=== PATIENT | female | born 1970 ===

== ENCOUNTER → 2022-04-13 09:14 | Outpatient (CLI) | payer OTHER, MEDICAID, SELFPAY ==
[2022-04-13 10:13] LABS: Hematocrit 39.8 % (36-46); Hemoglobin 12.8 g/dL (12.0-16.0); Mean Corpuscular HGB Conc 32.1 % (30-36); Mean Corpuscular Hemoglobin 25.7 PG (26-34); Mean Corpuscular Volume 80.1 fL (80-100); Platelet Count 242 X10^3/uL (150-400); Red Blood Cell Count 4.96 X10^6/uL (4.0-5.2); Red Cell Distribution Width 13.4 % (11.6-14.8); White Blood Cell Count 4.4 X10^3/uL (4.5-11.0)
[2022-04-13 10:24] LABS: HEMOLYSIS < 15 (0-50); Iron 103 ug/dL (37-170)
[2022-04-13 10:26] LABS: Alanine Aminotransferase 20 IU/L (<35); Albumin 4.4 g/dL (3.5-5.0); Albumin Globulin Ratio 1.4 (1.0-2.8); Alkaline Phosphatase 67 U/L (38-126); Aspartate Aminotransferase 34 IU/L (14-36); Bilirubin Total 0.3 mg/dL (0.2-1.3); Blood Urea Nitrogen 25 mg/dL (7-17); Carbon Dioxide 30 mmol/L (22-32); Chloride 102 mmol/L (98-107); Cholesterol 201 mg/dL (140-199); Estimated Glomerular Filt Rate 46 mL/min (>60); Globulin 3.1 g/dL (1.7-4.1); Glucose 93 mg/dL (70-100); HDL Cholesterol 91 mg/dL (40-60); HEMOLYSIS < 15 (0-50); LDL Cholesterol Calculated 103 mg/dL (<100); Potassium 4.6 mmol/L (3.4-5.1); Sodium 138 mmol/L (137-145); Total Protein 7.5 g/dL (6.3-8.2); Triglycerides 36 mg/dL (35-150)
[2022-04-13 10:34] LABS: Percent Iron Saturation 28 % (15-50); Total Iron Binding Capacity 374 ug/dL (265-497); Transferrin 316 mg/dL (206-381)
[2022-04-13 10:54] LABS: TSH w/ Reflex to FT4 1.84 uIU/mL (0.47-4.68)
[2022-04-13 10:58] LABS: Ferritin 71 ng/mL (11-264)
[2022-04-15 09:08] LABS: Calcium 9.2 mg/dL (8.7-10.2); Parathyroid Hormone, Intact 46 pg/mL (15-65)
== END ==
PROVIDERS: PCP Registered Nurse Diabetes Educator; Referring Provider Registered Nurse Diabetes Educator; Visit Provider Registered Nurse Diabetes Educator
DX: Z00.00 Encounter for general adult medical examination without abnormal findings (principal); L65.9 Nonscarring hair loss, unspecified
CPT/HCPCS: 36415; 80053; 80061; 82310; 82728; 83540; 83550; 83970; 84443; 85027

== ENCOUNTER → 2022-04-29 09:14 | Outpatient (CLI) | payer OTHER, MEDICAID, SELFPAY ==
[2022-04-29 10:22] LABS: Appearance Urine UA CLEAR; Bilirubin Urine UA NEGATIVE (NEGATIVE); Color Urine UA YELLOW; Glucose Urine UA NEGATIVE (Negative); Ketones Urine UA NEGATIVE (NEGATIVE); Leukocyte Esterase Urine UA NEGATIVE (NEGATIVE); Nitrite Urine UA NEGATIVE (Negative); Occult Blood Urine UA NEGATIVE (Negative); Protein Urine UA NEGATIVE (Negative); Specific Gravity Urine UA <=1.005 (1.000-1.035); Urobilinogen Urine UA 0.2 E.U./dL (0.2)
[2022-04-29 10:28] LABS: Bacteria Urine None Seen; Culture Indicated Urine Cult Not Indicated; RBC Urine None Seen (0-5/HPF); Urine Comments Microscopic Normal; WBC Urine None Seen (0-5/HPF)
[2022-04-29 10:53] LABS: Creatinine Urine Random 17.1 mg/dL
[2022-04-29 10:57] LABS: Microalbumin Urine Random < 0.6 mg/dL (0-1.6)
[2022-04-29 13:26] LABS: Blood Urea Nitrogen 18 mg/dL (7-17); Calcium 9.3 mg/dL (8.4-10.2); Carbon Dioxide 32 mmol/L (22-32); Chloride 99 mmol/L (98-107); Estimated Glomerular Filt Rate > 60 mL/min (>60); Glucose 87 mg/dL (70-100); HEMOLYSIS < 15 (0-50); Potassium 4.5 mmol/L (3.4-5.1); Sodium 138 mmol/L (137-145)
== END ==
PROVIDERS: PCP Registered Nurse Diabetes Educator; Referring Provider Registered Nurse Diabetes Educator; Visit Provider Registered Nurse Diabetes Educator
DX: R94.4 Abnormal results of kidney function studies (principal)
CPT/HCPCS: 36415; 80048; 81001; 82043; 82570

== ENCOUNTER → 2022-07-10 12:19 | Outpatient (CLI) | payer OTHER, MEDICAID, SELFPAY ==
--- NOTE | 2022-07-10 12:21 | DI.US.S_ITS ---
PROCEDURE: US PELVIC COMPLETE INDICATIONS: reeval fibroids/pelvic pain TECHNIQUE: Real-time scanning was performed of the pelvic organs, with image documentation. Additional endovaginal scanning was necessary due to incomplete visualization of the adnexal and endometrial structures by transabdominal scanning. COMPARISON: [facility], US, US PELVIC COMPLETE WITH TRANSVAGINAL, 11/10/2017, 7:14. [facility], US, US ABDOMEN LIMITED, 07/10/2022, 12:31. FINDINGS: Uterus: Uterus is anteverted and normal in size at 8.5 x 4.2 x 4.9 cm. The myometrium is heterogeneous. The endometrium measures 5 mm combined thickness. Hypoechoic uterine lesions are seen, which are attributed to fibroids. They measure as follows: Right anterior uterus, subserosal, partially calcified, 7.4 x 6.3 x 9.2 cm (prior 8.3 x 8.7 x 7.5 cm) Left posterior uterus, subserosal, partially calcified, 2.4 x 2 x 2.1 cm (prior 2.2 x 2.4 x 1.8 cm) Right anterior uterus, intramural, 1.2 x 0.9 x 1.1 cm. Ovaries: The ovaries are not seen. No adnexal masses are seen on either side. Other: No pathologic free abdominal or pelvic fluid. IMPRESSION: Numerous uterine fibroids are seen, with slight interval increase in size compared to 2018. Limited study, without visualization of either ovary. We strive to produce accurate, complete, and clear reports of imaging services. To assist us in improving patient care, this report was composed using standard report templates and voice recognition software. Therefore, it may contain abnormal punctuation, insertions and/or omissions. Occasional wrong-word or sound-alike substitutions may occur. Though we review the report and make efforts to correct it, we do recommend that the report be read carefully in proper context to recognize any text inaccuracies. Dictated by: Bismark Lopez M.D. on 07/10/2022 at 12:47 Approved by: Bismark Lopez M.D. on 07/10/2022 at 12:49
--- NOTE | 2022-07-10 12:21 | DI.US.S_ITS ---
PROCEDURE: US ABDOMEN LIMITED INDICATIONS: RUQ pain TECHNIQUE: Real-time focused scanning was performed of the abdomen, with image documentation. COMPARISON: [facility], US, US PELVIC COMPLETE, 07/10/2022, 12:41. FINDINGS: The liver is normal in size and demonstrates no focal lesions. Note is made of a simple appearing, nonvascular 15 mm right hepatic cyst. No findings of gallstones or sludge are seen. The gallbladder wall is not thickened, measuring 3 mm or less. No specific pericholecystic fluid is seen. The sonographic Padilla sign is negative. There is no biliary dilatation, the common bile duct measures 4 mm. No significant pancreatic abnormality is seen on these images. IMPRESSION: The gallbladder demonstrates a normal sonographic appearance. No biliary dilatation is seen. 15 mm right liver cyst incidentally noted. Dictated by: Bismark Lopez M.D. on 07/10/2022 at 12:45 Approved by: Bismark Lopez M.D. on 07/10/2022 at 12:46
== END ==
PROVIDERS: PCP Registered Nurse Diabetes Educator; Referring Provider Registered Nurse Diabetes Educator; Visit Provider Registered Nurse Diabetes Educator
DX: D25.1 Intramural leiomyoma of uterus (principal); D25.2 Subserosal leiomyoma of uterus; R10.11 Right upper quadrant pain; R10.2 Pelvic and perineal pain; K76.89 Other specified diseases of liver
CPT/HCPCS: 76705; 76830; 76856

== ENCOUNTER 2022-11-05 08:20 | Emergency (ER) | payer OTHER, MEDICAID, SELFPAY ==
[2022-11-05] VITALS (8 sets, daily range): BP systolic 148–185; BP diastolic 89–110; PULSE 55–80; RESP 16–20; TEMP 36.3; O2SAT 99–100; BMI 30.2
--- NOTE | 2022-11-05 08:43 | DI.US.S_ITS ---
PROCEDURE: US ABDOMEN LIMITED INDICATIONS: RUQ PAIN TECHNIQUE: Real-time scanning was performed of the abdominal and retroperitoneal organs, with image documentation. COMPARISON: [facility], , US ABDOMEN LIMITED, 07/10/2022, 12:31. FINDINGS: Liver: Liver is normal in size and homogeneous in echotexture. Gallbladder: Minimal sludge is seen. No stones. No wall thickening or pericholecystic fluid. Biliary ducts: Intrahepatic bile ducts are non-dilated. Extrahepatic bile duct caliber measures 2.4 mm. Normal is 6-7 mm or less in diameter, or 10 mm or less post-cholecystectomy. Pancreas: Visualized portions of the pancreas are sonographically normal. IMPRESSION: No acute ultrasound abnormality in the right upper quadrant. Dictated by: Wilver Draper M.D. on 11/05/2022 at 10:04 Approved by: Wilver Draper M.D. on 11/05/2022 at 10:05
[2022-11-05 09:19] LABS: Add Manual Diff / Slide Review NO; Basophils Absolute Auto 0 /uL (0-100); Basophils Percent Auto 0.7 % (0-2); Eosinophils Absolute Auto 300 /uL (0-450); Eosinophils Percent Auto 5.6 % (2-4); Hematocrit 39.4 % (36-46); Hemoglobin 12.8 g/dL (12.0-16.0); Lymphocytes Absolute Auto 1200 /uL (1100-4500); Lymphocytes Percent Auto 24.3 % (25-40); Mean Corpuscular HGB Conc 32.5 % (30-36); Mean Corpuscular Hemoglobin 25.9 PG (26-34); Mean Corpuscular Volume 79.6 fL (80-100); Monocytes Absolute Auto 300 /uL (0-900); Monocytes Percent Auto 6.8 % (3-14); Neutrophils Absolute Auto 3200 /uL (1500-7000); Neutrophils Percent Auto 62.6 % (50-75); Platelet Count 248 X10^3/uL (150-400); Red Blood Cell Count 4.95 X10^6/uL (4.0-5.2); Red Cell Distribution Width 13.9 % (11.6-14.8); White Blood Cell Count 5.1 X10^3/uL (4.5-11.0)
[2022-11-05 09:31] LABS: Alanine Aminotransferase 13 IU/L (<35); Albumin 4.4 g/dL (3.5-5.0); Albumin Globulin Ratio 1.3 (1.0-2.8); Alkaline Phosphatase 73 U/L (38-126); Aspartate Aminotransferase 31 IU/L (14-36); BUN Creatinine Ratio 17.1 (6-22); Bilirubin Total 0.4 mg/dL (0.2-1.3); Blood Urea Nitrogen 14 mg/dL (7-17); Calcium 8.8 mg/dL (8.4-10.2); Carbon Dioxide 31 mmol/L (22-32); Chloride 104 mmol/L (98-107); Estimated Glomerular Filt Rate > 60 mL/min (>60); Globulin 3.3 g/dL (1.7-4.1); Glucose 94 mg/dL (70-100); HEMOLYSIS 32 (0-50); Lipase 75 U/L (23-300); Sodium 139 mmol/L (137-145); Total Protein 7.7 g/dL (6.3-8.2)
[2022-11-05] MEDS: SODIUM CHLORIDE 0.9% 1,000 ML 1000 ML IV (09:33)
--- NOTE | 2022-11-05 10:10 | DI.CT.S_ITS ---
PROCEDURE: CT ABDOMEN PELVIS W CON INDICATIONS: severe R side pain TECHNIQUE: After the administration of intravenous contrast, axial sections acquired from the lung bases to the pubic symphysis. Coronal and sagittal reformats were performed. For radiation dose reduction, the following was used: automated exposure control, adjustment of mA and/or kV according to patient size. COMPARISON: None. FINDINGS: Image quality: Excellent. Lung bases: Unremarkable. Heart: No significant findings. ABDOMEN: Liver: Scattered subcentimeter hypoattenuating lesions, too small to characterize by CT but probably small cysts. Gallbladder: Unremarkable. Biliary ducts: Unremarkable. Pancreas: Unremarkable. Spleen: Unremarkable. Adrenal Glands: Unremarkable. Kidneys and Ureters: Unremarkable. Stomach and Bowel: Stomach, small bowel loops, and colon are unremarkable. Normal appendix. Peritoneum: No abnormal intraperitoneal fluid. No free air. Ventral Wall: No hernias. Abdominal Nodes: No retroperitoneal or mesenteric adenopathy by size criteria. Vessels: Aorta and inferior vena cava are normal in size. PELVIS: Pelvic Organs: Calcified and noncalcified fibroids. Bladder: Unremarkable. Pelvic Nodes: No enlarged lymph nodes. Miscellaneous: No hernias are seen. Hypoattenuating lesion in the left gluteal musculature measuring 3.2 x 1.9 cm (series 2, image 68). Bones: Unremarkable. IMPRESSION: No acute findings to explain the patient's severe right-sided pain. No nephrolithiasis. Normal appendix and gallbladder. Calcified and noncalcified fibroids. Hypoattenuating lesion in the left gluteal musculature measuring 3.2 x 1.9 cm. Differential includes muscle injury or less likely soft tissue sarcoma. Correlate with history of trauma; if negative, consider outpatient MRI with contrast to exclude sarcoma. Dictated by: Vidal Carrion M.D. on 11/05/2022 at 10:39 Approved by: Vidal Carrion M.D. on 11/05/2022 at 10:42
--- NOTE | 2022-11-05 11:04 | ED_ITS ---
HPI - Abdominal Pain General Chief Complaint: Abdominal Pain Stated Complaint: abd pain since October 20 Time Seen by Provider: 11/05/22 08:38 Source: patient Mode of arrival: Family Vehicle History of Present Illness HPI narrative: 52-year-old female nonsmoker with history of hypertension, asthma and ADHD presents with a chief complaint of off and on right-sided abdominal pain for least the past few months. She had seen in her primary care provider a few months ago and had an ultrasound which was unremarkable. She states that her pain had actually improved for awhile and then started coming back perhaps 2-3 weeks ago. She states that it is universally in the right upper quadrant and has episodes where it radiates down. She states on occasion she has some right upper back pain as well. She is nauseated but denies any vomiting. She is had no fever or chills. She denies any diarrhea or constipation and has no urinary complaints such as dysuria, frequency or urgency. She denies any trauma or injury. She has no chest pain or shortness of breath. Related Data Home Medications Medication Instructions Recorded Confirmed bupropion HCl 150 mg tablet,12 hr 150 mg PO DAILY ADHD 05/04/22 09/16/22 sustained-release methylphenidate HCl 36 mg 36 mg PO DAILY ADHD 05/04/22 09/16/22 tablet,extended release 24 hr dexmethylphenidate 10 mg tablet 10 mg PO 09/16/22 09/16/22 Previous Rx's Medication Instructions Recorded amlodipine 2.5 mg tablet 2.5 mg PO DAILY #30 tabs 09/21/22 benazepril 10 mg tablet 10 mg PO DAILY #30 tabs 09/21/22 peg 3350-electrolytes 236 240 ml PO Q10M #4,000 mL 11/04/22 gram-22.74 gram-6.74 gram-5.86 gram solution (Golytely) Allergies Allergy/AdvReac Type Severity Reaction Status Date / Time COVID-19 (SARS-CoV-2) Allergy Intermediate Hives Verified 11/05/22 08:53 vaccine, lon Review of Systems Review of Systems Narrative: GENERAL: Denies chills, fatigue, malaise, fever, sweats. HEENT: Denies sinus pain, ear pain, sore throat, difficulty swallowing, dizziness. RESPIRATORY: Denies dyspnea, cough, wheezing, hemoptysis, sputum. CARDIOVASCULAR: Denies chest pain, palpitations, orthopnea, edema, GASTROINTESTINAL: See HPI : Denies dysuria, frequency, incontinence, hematuria, urinary retention. MUSCULOSKELETAL: denies weakness, joint pain, or bony pain SKIN: Denies rash, skin lesions, or other NEUROLOGIC: Denies weakness, headache, numbness, change in speech, confusion, seizures, incoordination. PSYCHIATRIC: No concerning psychosocial issues. 12 point review of systems is negative except for those stated above Patient History Medical History ADHD (~2008) Asthma (~2003) Epidermal cyst (~2014) Essential hypertension (~2019) Fibroids (~2008) Irregular menstrual cycle (~2017) Myopia Petechiae (~2020) Surgical History Anesthesia History of section Family History Father Hyperparathyroidism Diabetes mellitus History of heart disease Hypertension Stroke Kidney failure Mother Dementia Cataracts, bilateral Breast cancer Hypertension Hyperlipidemia Grandfather Hypertension Grandmother History of heart disease Congestive heart failure Social History Smoking Status: Never smoker Smoking Status: Never smoker alcohol intake frequency: 0-2 drinks per day Substance Use Type: does not use Exam Narrative Exam Narrative: GENERAL: [52] year old patient appears stated age. Well-developed patient, in mild distress. HEAD: Atraumatic. Normocephalic. EYES: Pupils equal round and reactive. Extraocular motions intact. No scleral icterus. No injection or drainage. ENT: Nose without bleeding, purulent drainage. Throat without erythema, tonsillar hypertrophy or exudate. Airway patent. NECK: Trachea midline. Non tender CARDIOVASCULAR: Regular rate and rhythm without murmurs, gallops, or rubs. RESPIRATORY: Clear to auscultation. Breath sounds equal bilaterally. No wheezes, rales, or rhonchi. GASTROINTESTINAL: Abdomen soft, mild right-sided abdominal pain, nondistended. EXTREMITIES: No edema or joint tenderness. BACK: Nontender without deformity or crepitance. No flank tenderness. NEURO: AOx3. SKIN: No rash or erythema of visible areas Initial Vital Signs Initial Vital Signs: Vital Signs Temperature 97.4 F L 11/05/22 08:41 Pulse Rate 80 11/05/22 08:41 Respiratory Rate 18 11/05/22 08:41 Blood Pressure 185/110 H 11/05/22 08:41 Pulse Oximetry 99 11/05/22 08:41 Oxygen Delivery Method Room Air 11/05/22 08:41 Course Orders Ordered: Discontinued Medications Sodium Chloride (Normal Saline 0.9%) 1,000 mls @ 1,000 mls/hr IV BOLUS ONE Stop: 11/05/22 09:42 Last Infusion: 11/05/22 10:24 Dose: 0 mls/hr Documented By: Admin: 11/05/22 09:33 Dose: 1,000 mls/hr Documented By: STACIE Vital Signs Vital signs: Vital Signs - 8 hr 11/05/22 08:41 11/05/22 09:27 11/05/22 09:28 Temperature 97.4 F L Pulse Rate 80 64 Respiratory Rate 18 18 Blood Pressure 185/110 H 166/89 H Pulse Oximetry 99 100 Oxygen Delivery Method Room Air 11/05/22 09:28 11/05/22 09:30 11/05/22 09:30 Temperature Pulse Rate 60 63 Respiratory Rate 20 Blood Pressure 167/95 H Pulse Oximetry 100 100 Oxygen Delivery Method 11/05/22 10:00 11/05/22 10:01 11/05/22 10:01 Temperature Pulse Rate 62 60 Respiratory Rate Blood Pressure 148/94 H Pulse Oximetry 100 100 Oxygen Delivery Method MDM - Abdominal Pain Lab Data 11/05/22 09:13 11/05/22 09:13 Labs: Lab Results 11/05/22 11/05/22 Range/Units 09:13 09:13 WBC 5.1 (4.5-11.0) X10^3/uL RBC 4.95 (4.0-5.2) X10^6/uL Hgb 12.8 (12.0-16.0) g/dL Hct 39.4 (36-46) % MCV 79.6 L (80-100) fL MCH 25.9 L (26-34) PG MCHC 32.5 (30-36) % RDW 13.9 (11.6-14.8) % Plt Count 248 (150-400) X10^3/uL Neut % (Auto) 62.6 (50-75) % Lymph % (Auto) 24.3 L (25-40) % Sharkey % (Auto) 6.8 (3-14) % Eos % (Auto) 5.6 H (2-4) % Baso % (Auto) 0.7 (0-2) % Neut # (Auto) 3200 (8082-5535) /uL Lymph # (Auto) 1200 (5450-6508) /uL Sharkey # (Auto) 300 (0-900) /uL Eos # (Auto) 300 (0-450) /uL Baso # (Auto) 0 (0-100) /uL Sodium 139 (137-145) mmol/L Potassium 4.0 (3.4-5.1) mmol/L Chloride 104 (98-107) mmol/L Carbon Dioxide 31 (22-32) mmol/L BUN 14 (7-17) mg/dL Creatinine 0.82 (0.52-1.04) mg/dL Estimated GFR > 60 (>60) mL/min BUN/Creatinine Ratio 17.1 (6-22) Glucose 94 (70-100) mg/dL Calcium 8.8 (8.4-10.2) mg/dL Total Bilirubin 0.4 (0.2-1.3) mg/dL AST 31 (14-36) IU/L ALT 13 (<35) IU/L Alkaline Phosphatase 73 (38-126) U/L Total Protein 7.7 (6.3-8.2) g/dL Albumin 4.4 (3.5-5.0) g/dL Globulin 3.3 (1.7-4.1) g/dL Albumin/Globulin Ratio 1.3 (1.0-2.8) Lipase 75 (23-300) U/L Point of care testing: Urine Dip Bedside Urine Glucose Negative Bedside Urine Bilirubin - Negative Bedside Urine Ketone - Negative Urine Specific [place] 1.010 Bedside Urine Occult Blood - Negative Bedside Urine pH 7.0 Bedside Urine Protein - Negative Bedside Urine Urobilinogen - Negative Bedside Urine Nitrite - Negative Bedside Urine Leukocytes - Negative Esterase MDM Narrative Medical decision making narrative: [52] year old patient presents with right-sided abdominal pain off and on for many months Multiple etiologies for patient's symptoms considered including, but not limited to: [Gallbladder disease versus liver disease versus pancreatitis versus kidney stone versus pyelonephritis versus bowel obstruction versus other] Prior Charts reviewed in our EMR Primary Historian: patient Labs reviewed and interpreted by myself: No leukocytosis or left shift, no signs of anemia, electrolytes, kidney function, bilirubin, LFTs, lipase all within normal limits. Imaging reviewed: Ultrasound without abnormal findings, CT of abdomen and pelvis with IV contrast also without acute findings Patient's symptoms improved over duration of stay with above-stated therapies. Pain is well controlled, she is tolerating orals, no signs of sepsis, labs and imaging without any acute findings, history and physical exam are reassuring and multiple diagnoses have been considered but no evidence need for hospitalization or surgical intervention at this time. Patient given return precautions including fever, persistent vomiting, worsening pain or other concerning symptoms. Encouraged to follow closely with her care team and discussion regarding the potential benefit of surgical referral for possible endoscopy, HIDA scan versus other Findings and discharge diagnosis discussed with patient/family followed by verbalization of understanding Return precautions discussed with patient/family whom verbalize understanding of diagnosis and plan Discharge Plan Departure Patient Disposition: Home Clinical Impression: Abdominal pain Instructions: DI for Abdominal Pain-Adult Activity Restrictions/Additional Instructions: *You have been diagnosed with [abdominal pain] * As we discussed your history and physical exam as well as labs and imaging are very reassuring. There is no evidence of any severe diagnoses that would require a specific or immediate intervention. *What to do: *Please continue to take your regular medications as directed. *Please follow up with your primary care provider in 2-3 days, call for an appointment. Let them know you were seen in the Emergency Department and that we ask that you be seen in follow up. We will electronically transmit a record of today's note if your PCP is in our system *Please consider a clear liquid diet for the next 24-48 hours and then slowly advance to regular as tolerated. Also, try to avoid alcohol, nicotine, caffeine, spicy, acidic or fatty foods as this may worsen your symptoms *If you do not have a primary care provider please contact the [facility] Resource line at [phone]. They will ask some questions about your medical h istory and help get you set up with a doctor in the community. *Return to Emergency Department if you should have any new, worsening or concerning symptoms, such as [fever greater than 101 F, shaking chills, worsening pain, persistent vomiting or other bothersome symptoms] Prescriptions: No Action peg 3350-electrolytes [Golytely] 236-22.74-6.74 -5.86 gram recon soln 240 ml PO Q10M Qty: 4000 0RF Rx Instructions: take as directed by Physician methylphenidate HCl 36 mg tablet extended release 24hr 36 mg PO DAILY Patient Comments: since 2008 bupropion HCl 150 mg tablet sustained-release 12 hr 150 mg PO DAILY Patient Comments: since 2012 dexmethylphenidate 10 mg tablet 10 mg PO Patient Comments: take 1 tablet by mouth once daily if needed amlodipine 2.5 mg tablet 2.5 mg PO DAILY Qty: 30 2RF benazepril 10 mg tablet 10 mg PO DAILY Qty: 30 2RF Referrals: Chalino Bowers ARNP [Primary Care Provider] - Stand Alone Forms: Patient Portal/API
== END 2022-11-05 13:15 | disposition home or self-care (01) ==
PROVIDERS: Emergency Provider Emergency Medicine; PCP Registered Nurse Diabetes Educator
DX: R10.9 Unspecified abdominal pain (principal); R11.0 Nausea
CPT/HCPCS: 74177; 76705; 80053; 81003; 83690; 85025; 99284; Q9967

== ENCOUNTER 2023-02-11 08:07 | Day surgery (SDC) | payer OTHER, MEDICAID, SELFPAY ==
--- NOTE | 2023-02-11 | PATH_ITS ---
[facility] Accession Number: [id number] No. of containers..02 Tissue . 01 Material submitted: . PART A: duodenum - DUODENAL BIOPSY PART B: gastrointestinal site - ANTRUM BIOPSY . 01 Diagnosis: A- DUODENUM, BIOPSY: - SMALL BOWEL MUCOSA WITH PRESERVED VILLOUS ARCHITECTURE, NEGATIVE FOR HISTOLOGIC EVIDENCE OF CELIAC DISEASE. - NEGATIVE FOR DYSPLASIA OR MALIGNANCY. --- B- STOMACH, ANTRUM, BIOPSY: - ANTRAL GASTRIC MUCOSA WITH CHRONIC GASTRITIS AND FOCAL INTESTINAL METAPLASIA WITHOUT DYSPLASIA. - NO H. PYLORI LIKE ORGANISMS IDENTIFIED (BY THE H/E AND IMMUNOHISTOCHEMICAL STAINED SLIDE SECTIONS). - NEGATIVE FOR MALIGNANCY. - SEE COMMENT: . COMMENT: H. PYLORI IMMUNOHISTOCHEMICAL STAIN WAS PERFORMED ON PART B AND IS NEGATIVE. TECHNICAL NOTE: THE IMMUNOHISTOCHEMICAL STAINS REPORTED WERE PERFORMED AT [facility] ([address], [facility] [address]). THEY WERE DEVELOPED AND THEIR PERFORMANCE CHARACTERISTICS DETERMINED BY [employer]. THEY HAVE NOT BEEN CLEARED OR APPROVED BY THE [employer], ALTHOUGH SUCH APPROVAL IS NOT REQUIRED FOR ANALYTE-SPECIFIC REAGENTS OF THIS TYPE. TXN 02/19/2023 0947 Local . 01 Electronically signed: . Tawbrian Banerjee MD, Pathologist NPI- [id number] . 01 Gross description: . Part A: DUODENAL BIOPSY: Received in formalin is multiple fragment(s) of burgess, soft tissue measuring 0.5 x 0.3 x 0.1 cm in aggregate submitted entirely in 1 cassette(s) Part B: ANTRUM BIOPSY: Received in formalin is multiple fragment(s) of burgess, soft tissue measuring 1.2 x 0.3 x 0.1 cm in aggregate submitted entirely in 1 cassette(s) /AAY 02/16/2023 0108 Local . 01 Pathologist provided ICD-10: K29.70 . 01 CPT . 321398, 971160, [id number] Specimen Comment: A courtesy copy of this report has been sent to [phone] Performed at: 01 [facility] [address] [place] [address], [place], [place] [id number] [address] [place] MD Phone: [phone]
[2023-02-11] MEDS: LACTATED RINGERS 1,000 ML 42 ML IV (08:18)
[2023-02-11 08:27] VITALS: BP 173/99; PULSE 106; RESP 16; TEMP 36.4; O2SAT 99; BMI 29.2
--- NOTE | 2023-02-11 09:26 | PM.HP.1 ---
History of Present Illness History of Present Illness Date Patient Seen: 02/11/23 Time Patient Seen: 09:26 Chief complaint: [facility] Narrative: Bella is a 52-year-old woman with abdominal pain. See office note from November for details. [facility] Medical History ADHD (~2008) Asthma (~2003) Epidermal cyst (~2014) Essential hypertension (~2019) Fibroids (~2008) Irregular menstrual cycle (~2017) Myopia Petechiae (~2020) Surgical History Anesthesia History of section Family History Father Hyperparathyroidism Diabetes mellitus History of heart disease Hypertension Stroke Kidney failure Mother Dementia Cataracts, bilateral Breast cancer Hypertension Hyperlipidemia Grandfather Hypertension Grandmother History of heart disease Congestive heart failure Social History household members: spouse Smoking Status: Never smoker alcohol intake: never Meds Home Medications and Allergies Home Medications Medication Instructions Recorded Confirmed Type bupropion HCl 150 mg tablet,12 hr 150 mg PO DAILY ADHD 05/04/22 02/11/23 History sustained-release methylphenidate HCl 36 mg 36 mg PO DAILY ADHD 05/04/22 02/11/23 History tablet,extended release 24 hr dexmethylphenidate 10 mg tablet 10 mg PO DAILY 09/16/22 02/11/23 History carvedilol 6.25 mg tablet (Coreg) 6.25 mg PO DAILY 02/11/23 02/11/23 History Allergies Allergy/AdvReac Type Severity Reaction Status Date / Time COVID-19 (SARS-CoV-2) Allergy Intermediate Hives Verified 02/11/23 08:23 vaccine, lon Exam Vital Signs (past 8 hours): - 02/11/23 08:27 Temperature 97.6 F Pulse Rate 106 H Respiratory Rate 16 Blood Pressure 173/99 H Pulse Oximetry 99 Oxygen Delivery Method Room Air Oxygen Delivery Method Room Air Const General: healthy appearing Assessment & Plan Assessment and plan (1) Abdominal pain: Qualifiers: Abdominal location: right upper quadrant Qualified Code(s): R10.11 - Right upper quadrant pain Status: Inactive Plan We will proceed with a EGD and colonoscopy today.
[2023-02-11 10:14] VITALS: BP 113/78; PULSE 100; RESP 23; TEMP 36.9; O2SAT 100
--- NOTE | 2023-02-11 10:17 | P.OP.EGD&C_ITS ---
Operative Date/Time/Diagnoses Date of procedure: 02/11/23 Time of procedure: 10:17 Pre-op diagnosis: Abdominal pain Post-op diagnosis: same Procedure & Clinicians Study performed: EGD and colonoscopy Same procedure as scheduled: Yes Surgeon: Mejia Ya Procedure Notes Procedure in detail: Surgeon: Mejia Ya MD Anesthesia: Chayito Longoria CRNA Procedure in detail: A timeout was performed. A bite blocked was placed and monitors were attached to the patient. The patient was positioned in a left lateral decubitus position. Sedation was administered. Once the patient was sedated the endoscope was inserted through the bite block and passed through the esophagus and stomach and into the duodenum. No abnormalities were seen in the duodenal. We performed random biopsies from the duodenal mucosa. We then withdrew the scope into the stomach. There were some old flecks of blood s tomach but no obvious source of bleeding. No ulcers were found. Random biopsies were taken from the antrum The endoscope was retroflexed and no hiatal hernia was seen. The endoscope was straightned and withdrawn into the esophagus. No other abnormalities were seen. Findings: Normal esophagus, stomach and duodenal Next we repositioned the patient for a colonoscopy. A digital rectal exam was performed and was normal. The colonoscope was inserted and advanced to the cecum. The appendiceal orifice was identified and photographed. The scope was slowly withdrawn over greater than 6 minutes. No polyps or other abnormalities were seen. The scope was retroflexed in the rectum and no abnormalities were seen. Findings: Normal colon EBL: 5 mL Scope withdrawal time: 8 minutes Sedation minutes: 19 minutes Post-procedure Recommendations: Colonscopy in 10 years Disposition: PACU
[2023-02-11 10:19] VITALS: BP 135/91; PULSE 96; RESP 18; O2SAT 100
[2023-02-11 10:24] VITALS: BP 135/94; PULSE 90; RESP 18; O2SAT 100
[2023-02-11 10:35] VITALS: BP 140/98; PULSE 91; RESP 12; TEMP 37; O2SAT 100
== END 2023-02-11 10:39 | disposition home or self-care (01) ==
PROVIDERS: PCP Registered Nurse Diabetes Educator; Referring Provider Surgery; Visit Provider Surgery
PROC: 0DJD8ZZ Inspection of Lower Intestinal Tract, Via Natural or Artificial Opening Endoscopic (ICD-10-PCS; CPT 45378; principal; 2023-02-11 09:15)
PROC: 0DJ08ZZ Inspection of Upper Intestinal Tract, Via Natural or Artificial Opening Endoscopic (ICD-10-PCS; CPT 43235; 2023-02-11 09:15)
DX: K29.50 Unspecified chronic gastritis without bleeding (principal); K31.A11 Gastric intestinal metaplasia without dysplasia, involving the antrum
CPT/HCPCS: 45378; 43239; J2704

== ENCOUNTER → 2023-03-09 11:34 | Outpatient (CLI) | payer OTHER, MEDICAID, SELFPAY ==
--- NOTE | 2023-03-09 | DI.MG.S_ITS ---
BILATERAL DIGITAL SCREENING MAMMOGRAM 3D/2D WITH CAD: 03/09/2023 CLINICAL: Routine screening. Baseline exam. Family history of breast cancer. No prior exams were available for comparison. Both breasts are heterogeneously dense, which may obscure small masses (category c / 51-75% glandular tissue). Current study was also evaluated with a Computer Aided Detection (CAD) system. No significant masses, calcifications, or other findings are seen in either breast. IMPRESSION: NEGATIVE There is no mammographic evidence of malignancy. A 1 year screening mammogram is recommended. Based on the Tyrer Cuzick model (a risk assessment model) the patient's lifetime risk is 16.7% and her 10 year risk is 4.2%. According to the ACR, ACS, and NCCN guidelines, an annual breast MRI exam along with mammogram is recommended if the patient's lifetime risk is 20% or greater. This exam was interpreted at Station ID: [id number]. NOTE: For mammograms, a report in lay terms will be sent to the patient. Approximately 15% of breast malignancies will not be visualized mammographically. In the management of a palpable breast mass, a negative mammogram must not discourage biopsy of a clinically suspicious lesion. Electronically Signed By: Cj nuñez/joana:03/09/2023 13:12:13 letter sent: Normal Exam ACR BI-RADS Category 1: Negative [id number]
== END ==
PROVIDERS: PCP Registered Nurse Diabetes Educator; Referring Provider Registered Nurse Diabetes Educator; Visit Provider Registered Nurse Diabetes Educator
DX: Z12.31 Encounter for screening mammogram for malignant neoplasm of breast (principal); Z80.3 Family history of malignant neoplasm of breast
CPT/HCPCS: 77063; 77067

== ENCOUNTER 2023-07-08 18:11 | Emergency (ER) | payer OTHER, MEDICAID, SELFPAY ==
[2023-07-08 18:21] VITALS: BP 143/82; PULSE 130; RESP 18; O2SAT 96
[2023-07-08 18:24] VITALS: BP 143/82; PULSE 94; RESP 20; TEMP 39.6; O2SAT 94; BMI 29.2
[2023-07-08 18:53] VITALS: TEMP 39.6
[2023-07-08] MEDS: IBUPROFEN 400 MG TABLET 800 MG PO (18:53)
--- NOTE | 2023-07-08 19:07 | ED_ITS ---
HPI - General Adult General Chief complaint: Urogenital-Female Stated complaint: Fever T-2/chills/ pain when urinating Time Seen by Provider: 07/08/23 18:36 Source: patient Mode of arrival: Ambulatory History of Present Illness HPI narrative: Patient is a 52-year-old female who is here for evaluation of 2 days of chills, urinary frequency, pain with urinating. She states that her urinary symptoms started about 1 week ago. She stated that yesterday she did have some right- sided back pain but that seems to have resolved. She has had some nausea but no vomiting. Has a urinary tract infection in the past but it was many years ago. No change in bowel habits. No skin changes. Did take Tylenol prior to arrival. Subjective fevers at home. Related Data Home Medications Medication Instructions Recorded Confirmed bupropion HCl 150 mg tablet,12 hr 150 mg PO DAILY ADHD 05/04/22 05/04/23 sustained-release dexmethylphenidate 10 mg tablet 10 mg PO DAILY 09/16/22 05/04/23 methylphenidate HCl 36 mg 36 mg PO QAM 05/04/23 05/04/23 tablet,extended release 24 hr Previous Rx's Medication Instructions Recorded amlodipine 5 mg tablet 5 mg PO DAILY #30 tabs 03/10/23 cephalexin 500 mg capsule 500 mg PO BID 5 days #10 caps 07/08/23 ondansetron 4 mg disintegrating 4 mg PO Q6H PRN nausea and 07/08/23 tablet vomiting #6 tabs Allergies Allergy/AdvReac Type Severity Reaction Status Date / Time COVID-19 (SARS-CoV-2) Allergy Intermediate Hives Verified 05/04/23 10:04 vaccine, lon Review of Systems Constitutional Constitutional: Reports system reviewed and no additional complaints, except as documented Gastrointestinal Gastrointestinal: Reports system reviewed and no additional complaints, except as documented Genitourinary Genitourinary: Reports system reviewed and no additional complaints, except as documented Integumentary/Breasts Skin/Breast: Reports system reviewed and no additional complaints, except as documented Patient History Medical History Epidermal cyst (~2014) Asthma (~2003) ADHD (~2008) Petechiae (~2020) Myopia Irregular menstrual cycle (~2017) Fibroids (~2008) Essential hypertension (~2020) Surgical History Anesthesia History of section Family History Father Hyperparathyroidism Diabetes mellitus History of heart disease Hypertension Stroke Kidney failure Mother Dementia Cataracts, bilateral Breast cancer Hypertension Hyperlipidemia Grandfather Hypertension Grandmother History of heart disease Congestive heart failure Social History household members: spouse Smoking Status: Never smoker alcohol intake: never Smoking Status: Never smoker alcohol intake frequency: 0-2 drinks per day Substance Use Type: does not use Exam Initial Vital Signs Initial Vital Signs: Vital Signs Pulse Rate 130 H 07/08/23 18:21 Respiratory Rate 18 07/08/23 18:21 Blood Pressure 143/82 H 07/08/23 18:21 Pulse Oximetry 96 07/08/23 18:21 Const General: cooperative, comfortable and No ill appearing HENMT Head: normal to inspection Resp Effort & Inspection: normal respiratory effort Cardio Rate: tachycardic GI Inspection: normal to inspection Back/Spine/Pelvis Back: No CVA tenderness Skin General: no rashes or lesions noted Neuro General: patient alert and patient awake Course Orders Ordered: ED Orders 07/08/23 18:30 Urine Culture Stat Urine Microscopic Stat Discontinued Medications Acetaminophen (Acetaminophen 325 Mg Tablet) 650 mg PO NOW ONE Stop: 07/08/23 18:38 Last Admin: 07/08/23 18:55 Dose: Not Given Documented By: BARBER Cephalexin HCl (Cephalexin 250 Mg Capsule) 500 mg PO NOW ONE Stop: 07/08/23 19:08 Last Admin: 07/08/23 19:12 Dose: 500 mg Documented By: ANA Ibuprofen (Ibuprofen 400 Mg Tablet) 800 mg PO NOW ONE Stop: 07/08/23 18:51 Last Admin: 07/08/23 18:53 Dose: 800 mg Documented By: ANA Ondansetron HCl (Ondansetron 4 Mg Odt) 4 mg SL NOW ONE Stop: 07/08/23 19:08 Last Admin: 07/08/23 19:12 Dose: 4 mg Documented By: ANA Vital Signs Vital signs: Vital Signs - 8 hr 07/08/23 18:21 07/08/23 18:21 07/08/23 18:24 Temperature 103.3 F H Pulse Rate 130 H 94 H Respiratory Rate 18 20 Blood Pressure 143/82 H 143/82 H Pulse Oximetry 96 94 Oxygen Delivery Method Room Air 07/08/23 18:53 07/08/23 19:48 Temperature 103.3 F H 101.6 F H Pulse Rate 115 H Respiratory Rate 18 Blood Pressure 116/66 Pulse Oximetry 94 Oxygen Delivery Method Medical Decision Making Lab Data Lab results reviewed: Yes I reviewed the patient's lab results. Labs: Lab Results 07/08/23 Range/Units 18:30 Urine RBC 1-5/hpf (0-5/HPF) Urine WBC 5-10/hpf H (0-5/HPF) Ur Squamous Epith Cells 1-5 /hpf (0-5/HPF) Amorphous Sediment 1+ Urine Bacteria Many (>30) H (None) Vol Urine Centrifuged 10ml (spun) Urine Dip Bedside Urine Glucose Negative Bedside Urine Bilirubin - Negative Bedside Urine Ketone - Negative Urine Specific Slaughter 1.015 Bedside Urine Occult Blood +++ Bedside Urine pH 6.0 Bedside Urine Protein + 30 Bedside Urine Urobilinogen - Negative Bedside Urine Nitrite + Positive Bedside Urine Leukocytes +++ 500 Esterase Point of care testing: Urine Dip Bedside Urine Glucose Negative Bedside Urine Bilirubin - Negative Bedside Urine Ketone - Negative Urine Specific Slaughter 1.015 Bedside Urine Occult Blood +++ Bedside Urine pH 6.0 Bedside Urine Protein + 30 Bedside Urine Urobilinogen - Negative Bedside Urine Nitrite + Positive Bedside Urine Leukocytes +++ 500 Esterase MDM Narrative Medical decision making narrative: History and physical when urinalysis today is consistent with a urinary tract infection. She was given a dose of antibiotics here in the emergency department as well some Tylenol. She had no vomiting. She has no CVA tenderness. Low suspicion for pyelonephritis. Given that she can take antibiotics by mouth will discharge her home with a prescription for antibiotics. We will hold on an admission for now. She was advised on the use of Tylenol and ibuprofen to try to help with her fevers. Urine culture was pending at the time of discharge and we will contact her if we need to change antibiotics based on this. She was given return precautions. She expressed understanding and agreement. Discharge Plan Departure Patient Disposition: Home Clinical Impression: Urinary tract infection Instructions: DI for Urinary Tract Infection (UTI) Activity Restrictions/Additional Instructions: Antibiotics were sent to [email or web address] here in [place]. Please take them as directed. You can take Tylenol and/or ibuprofen for any fevers. A urine culture was pending at the time of your discharge him we will contact you if we need to change any antibiotics based on this. Return to the emergency departmen t for new symptoms. Prescriptions: New cephalexin 500 mg capsule 500 mg PO BID 5 Days Qty: 10 0RF ondansetron 4 mg tablet,disintegrating 4 mg PO Q6H PRN (Reason: nausea and vomiting) Qty: 6 0RF No Action bupropion HCl 150 mg tablet sustained-release 12 hr 150 mg PO DAILY Patient Comments: since 2012 amlodipine 5 mg tablet 5 mg PO DAILY Qty: 30 1RF methylphenidate HCl 36 mg tablet extended release 24hr 36 mg PO QAM dexmethylphenidate 10 mg tablet 10 mg PO DAILY Patient Comments: take 1 tablet by mouth once daily if needed Referrals: Chalino Bowers ARNP [Primary Care Provider] - Stand Alone Forms: Patient Portal/API
[2023-07-08 19:08] LABS: RBC Urine 1-5/HPF (0-5/HPF); Urine Volume 10mL (spun); WBC Urine 5-10/HPF (0-5/HPF)
[2023-07-08 19:09] LABS: Amorphous Sediment Urine 1+; Bacteria Urine Many (>30); Squamous Epithelial Cell Urine 1-5 /HPF (0-5/HPF)
[2023-07-08] MEDS: ONDANSETRON 4 MG ODT SL (19:12)
[2023-07-08] MEDS: cephALEXin 250 MG CAPSULE 500 MG PO (19:12)
[2023-07-08 19:48] VITALS: BP 116/66; PULSE 115; RESP 18; TEMP 38.7; O2SAT 94
== END 2023-07-08 19:52 | disposition home or self-care (01) ==
PROVIDERS: Emergency Provider Emergency Medicine; PCP Registered Nurse Diabetes Educator
DX: N39.0 Urinary tract infection, site not specified (principal)
CPT/HCPCS: 81003; 81015; 87077; 87086; 87186; 99283

== ENCOUNTER → 2023-10-13 08:53 | Outpatient (CLI) | payer OTHER, MEDICAID, SELFPAY | PROVIDERS: PCP Registered Nurse Diabetes Educator; Referring Provider Registered Nurse Diabetes Educator; Visit Provider Registered Nurse Diabetes Educator | DX: R10.11 Right upper quadrant pain (principal) | CPT/HCPCS: 86682 ==

== ENCOUNTER 2023-12-26 15:14 | Emergency (ER) | payer OTHER, MEDICAID, SELFPAY ==
[2023-12-26 15:38] VITALS: BP 165/91; PULSE 85; RESP 17; TEMP 36.4; O2SAT 98; BMI 29.7
[2023-12-26] MEDS: PROPARACAINE 0.5% OPHTH SOL 1 DROPS EYE-BOTH (16:16)
--- NOTE | 2023-12-26 16:34 | ED_ITS ---
HPI - Eye Problem <Joyce Sood PA-C - Last Filed: 12/26/23 16:58> General Chief complaint: Eye Problems Stated complaint: increasing vision floaters left eye Time Seen by Provider: 12/26/23 15:40 History of Present Illness HPI Narrative: 53-year-old woman presents with concern for left eye floaters. Patient states she has had the symptoms for 8 days beginning last Wednesday, they have gradually worsened. She states that she feels there has a dark looking blob on the left side of her vision up higher that is grayish dark in color, it follows her eye movements. She also says there is a sort of line across the top of her vision on the left side also above the blob. This these have gradually been worsening, she states occasionally she feels a sensation like there is something waiting or rippling in her eyesight. She has not had any eye pain, also denies headaches, speech change, coordination or gait difficulty, any recent fall or injury, she does state that she does have somewhat high blood pressures that are variable she notes last week she checked it and it was 126 systolic. She has not take medication for this. She had a similar episode with floaters in her vision in August that lasted for weeks she did seek evaluation with her linux system engineer for this and at that time they said there was no abnormalities of her retina. She states these symptoms feel similar but a little worse than last time. 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 She does not wear contact lenses. She states she does not believe she got anything in her eye, and she refuses a fluorescein exam today. Related Data Home Medications Medication Instructions Recorded Confirmed bupropion HCl 150 mg tablet,12 hr 150 mg PO DAILY ADHD 05/04/22 10/12/23 sustained-release dexmethylphenidate 10 mg tablet 10 mg PO DAILY 09/16/22 10/12/23 methylphenidate HCl 36 mg 36 mg PO QAM 05/04/23 10/12/23 tablet,extended release 24 hr Allergies Allergy/AdvReac Type Severity Reaction Status Date / Time COVID-19 (SARS-CoV-2) Allergy Intermediate Hives Verified 10/12/23 09:43 vaccine, lon Review of Systems <Joyce Sood PA-C - Last Filed: 12/26/23 16:58> Review of Systems Narrative: See HPI Patient History <Joyce Sood PA-C - Last Filed: 12/26/23 16:58> Medical History Epidermal cyst (~2014) Asthma (~2003) ADHD (~2008) Petechiae (~2020) Myopia Irregular menstrual cycle (~2017) Fibroids (~2008) Essential hypertension (~2019) Surgical History Anesthesia History of section Family History Father Hyperparathyroidism Diabetes mellitus History of heart disease Hypertension Stroke Kidney failure Mother Dementia Cataracts, bilateral Breast cancer Hypertension Hyperlipidemia Grandfather Hypertension Grandmother History of heart disease Congestive heart failure Social History household members: spouse Smoking Status: Never smoker alcohol intake: never Smoking Status: Never smoker alcohol intake frequency: 0-2 drinks per day Substance Use Type: does not use Exam <Joyce Sood PA-C - Last Filed: 12/26/23 16:58> Narrative Exam Narrative: GENERAL: [53] year old patient appears stated age. Well-developed patient, in mild distress. HEAD: Atraumatic. Normocephalic. EYES: Pupils equal round and reactive. Extraocular motions intact and pain-free. No scleral icterus. No injection or drainage. Limited funduscopic exam, difficult to evaluate due to pupillary constriction. Question dark appearing area on lateral aspect, no definite movement suggesting retinal detachment. Intra-ocular pressures 19 on the left 20 on the right ENT: Nose without bleeding, purulent drainage. Airway patent. NECK: Trachea midline. Non tender CARDIOVASCULAR: Regular rate and rhythm RESPIRATORY: No increased work of breathing or respiratory distress EXTREMITIES: No edema or joint tenderness. NEURO: AOx3. SKIN: No rash or erythema of visible areas Initial Vital Signs Initial Vital Signs: Vital Signs Temperature 97.6 F 12/26/23 15:38 Pulse Rate 85 12/26/23 15:38 Respiratory Rate 17 12/26/23 15:38 Blood Pressure 165/91 H 12/26/23 15:38 Pulse Oximetry 98 12/26/23 15:38 Oxygen Delivery Method Room Air 12/26/23 15:38 <Celi Pena DO - Last Filed: 12/28/23 18:17> Initial Vital Signs Initial Vital Signs: Vital Signs Temperature 97.6 F 12/26/23 15:38 Pulse Rate 85 12/26/23 15:38 Respiratory Rate 17 12/26/23 15:38 Blood Pressure 165/91 H 12/26/23 15:38 Pulse Oximetry 98 12/26/23 15:38 Oxygen Delivery Method Room Air 12/26/23 15:38 Course <Joyce Sood PA-C - Last Filed: 12/26/23 16:58> Orders Ordered: Discontinued Medications Fluorescein Sodium (Fluorescein 1 Mg Strip) 1 mg EYE-BOTH NOW ONE Stop: 12/26/23 16:11 Last Admin: 12/26/23 16:17 Dose: Not Given Documented By: KEISHA Proparacaine HCl (Proparacaine 0.5% Ophth Matilda) 1 drops EYE-BOTH NOW ONE Stop: 12/26/23 16:11 Last Admin: 12/26/23 16:16 Dose: 1 drop Documented By: KEISHA Vital Signs Vital signs: Vital Signs - 8 hr 12/26/23 15:38 Temperature 97.6 F Pulse Rate 85 Respiratory Rate 17 Blood Pressure 165/91 H Pulse Oximetry 98 Oxygen Delivery Method Room Air <Celi Pena DO - Last Filed: 12/28/23 18:17> Orders Ordered: Discontinued Medications Fluorescein Sodium (Fluorescein 1 Mg Strip) 1 mg EYE-BOTH NOW ONE Stop: 12/26/23 16:11 Last Admin: 12/26/23 16:17 Dose: Not Given Documented By: RL Proparacaine HCl (Proparacaine 0.5% Ophth Matilda) 1 drops EYE-BOTH NOW ONE Stop: 12/26/23 16:11 Last Admin: 12/26/23 16:16 Dose: 1 drop Documented By: RL Vital Signs Vital signs: Vital Signs - 8 hr 12/26/23 15:38 Temperature 97.6 F Pulse Rate 85 Respiratory Rate 17 Blood Pressure 165/91 H Pulse Oximetry 98 Oxygen Delivery Method Room Air MDM - Eye Problem <Joyce Sood PA-C - Last Filed: 12/26/23 16:58> Differential Diagnosis Differential diagnosis: Likely other (Visual floater, retinal detachment) MDM Narrative Medical decision making narrative: 53-year-old woman presents with concern for left eye floaters present for 8 days. Worsening gradually over time. Her visual acuity exam today is 20/20 and 20/25 corrected, 20/20 bilaterally. IOPs are 19 on the left and 20 on the righ t. Patient refused a fluorescein exam today even after explanation of the reasons for doing this. She was agreeable to numbing drops with proparacaine and intra-ocular pressure exam. We discussed options after exam, I also did discuss this patient with the attending physician Dr. Pena including possibly reaching out to [facility] for consultation versus recommending the patient's he ophthalmology 1st thing in the morning. Discussed these options with the patient and she prefers to see Ophthalmology 1st thing in the morning, recommend that she see supervisor irrigation here at located within [facility] or she can also go to an supervisor irrigation office in [facility]. And that if anything at all is changing overnight or she develops new symptoms she should come back to the emergency department for further evaluation as at that point she would need likely to be transferred. Given her symptoms have been present for 8 days now and gradually worsening I think this is a reasonable plan. Patient is encouraged to follow up closely 1st thing in the morning and will share this note with Dr. Ryan, ophthalmology here at [facility]. Based on patient's exam and history I have low suspicion for CVA or other acute process, this is potentially benign or potentially a retinal detachment. Return precautions provided, follow-up plan discussed, all questions answered. Discharge Plan Departure Patient Disposition: Home Clinical Impression: Alteration in vision Floaters in visual field Qualifiers: Laterality: left Qualified Code(s): H43.392 - Other vitreous opacities, left eye Activity Restrictions/Additional Instructions: *You have been diagnosed with [eye floaters] *What to do: *Please continue to take your regular medications as directed. [ ] New medication prescriptions sent to your pharmacy: [ ] [ ] New medication written as a paper prescription [X ] No new medications given *Please follow up with your primary care provider in 2-3 days, call for an appointment. Let them know you were seen in the Emergency Department and that we ask that you be seen in follow up. We will electronically transmit a record of today's note if your PCP is in our system. Thank you for coming into the emergency department today we checked your intra-ocular pressures which were in the normal range in both eyes, we also did a visual acuity exam with your glasses on your visual acuity is intact. We discussed options today and it is very important that you get into be seen by Ophthalmology 1st thing in the morning for further evaluation as we have limited ability to fully evaluate for problems such as retinal detachment which is 1 of the concerns for what could be causing your symptoms. I have included Dr. Ryan supervisor irrigation here at located within [facility] on your chart and so she should be able to see this I recommend you go into their office tomorrow 1st thing advise you were seen in the emergency department and they recommended that you have emergent ophthalmology follow-up for further evaluation for possible retinal detachment. You are welcome to go to a different supervisor irrigation for example in [place]. Unfortunately there are not any [facility] that have Ophthalmology present on a Wednesday available to see patients in the emergency department for consult. If your symptoms worsen at all or he develop new symptoms overnight before you get into see Ophthalmology please do seek re-evaluation so that we can make a determination on sending you to a hospital that has ophthalmology available if needed based on symptom changes. I hope you get some answers and feel better soon. *If you do not have a primary care provider please contact the [facility] Resource line at [phone]. They will ask some questions about your medical history and help get you set up with a doctor in the community. *Return to Emergency Department if you should have any new, worsening or concerning symptoms, such as [fever greater than 101 F, shaking chills, worsening pain, persistent vomiting or other bothersome symptoms] Prescriptions: No Action bupropion HCl 150 mg tablet sustained-release 12 hr 150 mg PO DAILY Patient Comments: since 2012 methylphenidate HCl 36 mg tablet extended release 24hr 36 mg PO QAM dexmethylphenidate 10 mg tablet 10 mg PO DAILY Patient Comments: take 1 tablet by mouth once daily if needed Referrals: Sarika Ryan MD [Physician] - Chalino Bowers ARNP [Primary Care Provider] - Stand Alone Forms: Patient Portal/API ED Sign-out <Celi Pena DO - Last Filed: 12/28/23 18:17> Cosign ED Attending Cosignature Attestation: I was immediately available in the department for consultation.
== END 2023-12-26 16:56 | disposition home or self-care (01) ==
PROVIDERS: Emergency Provider Student in an Organized Health Care Education/Training Program; PCP Registered Nurse Diabetes Educator
DX: H43.392 Other vitreous opacities, left eye (principal); H54.7 Unspecified visual loss
CPT/HCPCS: 99282